=== PATIENT | male | born 1995 | race Caucasian/White ===

== ENCOUNTER 2018-07-05 23:42 | Emergency (ER) | payer BC ==
[~2018-07-05] VITALS: Ht 175.3 cm; Wt 105.4 kg
--- NOTE | 2018-07-05 23:50 | NUR ---
Laureen venegas in ED - 07/05/18 at 2350 by RFRUHLING Pt ambulated to room with EDT.
--- NOTE | 2018-07-05 23:50 | NUR ---
Pt ambulated to room with EDT.
--- NOTE | 2018-07-06 00:07 | NUR ---
Qing JOYCE, at bedside to evaluate pt.
--- NOTE | 2018-07-06 00:29 | NUR ---
Pt back to room from imaging.
[2018-07-06] MEDS ORDERED: DIPH,PERTUSS(ACELL),TET VAC/PF 0.5 ML IM-VACC ONE ×2 (00:33→01:00)
[2018-07-06] MEDS ORDERED: BACITRACIN ZINC OINT 500U/GM, 0.9 GM ONE (00:39)
--- NOTE | 2018-07-06 00:46 | NUR ---
EDT at bedside to irrigate and dress wound.
--- NOTE | 2018-07-06 01:55 | NUR ---
Sling applied and education provided regarding sling.
[2018-07-06 02:10] VITALS: BP 129/74
== END 2018-07-06 02:12 | disposition home or self-care (01) ==
LOC: ED 07-06 00:02
DX: S50.311A Abrasion of right elbow, initial encounter (principal); S50.811A Abrasion of right forearm, initial encounter; W01.0XXA Fall on same level from slipping, tripping and stumbling without subsequent striking against object, initial encounter; Y93.89 Activity, other specified; Y92.89 Other specified places as the place of occurrence of the external cause; Y99.8 Other external cause status
CPT/HCPCS: 90471; 90715; 99283

== ENCOUNTER 2019-12-14 11:05 | Emergency (ER) | payer SELFPAY ==
[~2019-12-14] VITALS: Ht 180.3 cm; Wt 115.9 kg
[2019-12-14] MEDS ORDERED: SODIUM CHLORIDE 0.9% 1,000ML IVBOLUS ONE (11:30)
[2019-12-14] MEDS ORDERED: SODIUM CHLORIDE FLUSH 10ML SYR IVF ONE (11:30)
[2019-12-14 12:05] LABS: BASOPHILS # (AUTO) 0.05 x10^3/uL (0-0.1); BASOPHILS % (AUTO) 1 % (0-1); EOSINOPHILS # (AUTO) 0.14 x10^3/uL (0-0.4); EOSINOPHILS % (AUTO) 2 % (1-7); LYMPHOCYTES # (AUTO) 2.05 x10^3/uL (1-3.4); LYMPHOCYTES % (AUTO) 35 % (22-44); MD NO; MEAN CORPUSCULAR HEMOGLOBIN 30.6 pg (27.5-34.5); MEAN CORPUSCULAR HGB CONC 33.5 g/dL (33.2-36.2); MEAN CORPUSCULAR VOLUME 91.2 fL (81-97); MEAN PLATELET VOLUME 11.2 fL (7.4-10.4); MONOCYTES # (AUTO) 0.25 x10^3/uL (0.2-0.8); MONOCYTES % (AUTO) 4 % (2-9); NEUTROPHILS # (AUTO) 3.46 x10^3/uL (1.8-6.8); NEUTROPHILS % (AUTO) 58 % (42-75); PLATELET COUNT 197 x10^3/uL (130-400); RED BLOOD COUNT 5.07 x10^6/uL (4.38-5.82); RED CELL DISTRIBUTION WIDTH 14.5 % (9.4-14.8)
[2019-12-14 12:13] LABS: ANION GAP 7 mmol/L (5-15); CALCIUM 8.9 mg/dL (8.5-10.1); CHLORIDE 110 mmol/L (98-107); CREATININE 0.95 mg/dL (0.7-1.3)
[2019-12-14 12:31] LABS: MICROSCOPIC AUTO
[2019-12-14 12:59] VITALS: BP 111/55
== END 2019-12-14 13:52 | disposition home or self-care (01) ==
LOC: ED 12:33
DX: K40.90 Unilateral inguinal hernia, without obstruction or gangrene, not specified as recurrent (principal); R11.10 Vomiting, unspecified; E86.0 Dehydration; M54.9 Dorsalgia, unspecified; F17.200 Nicotine dependence, unspecified, uncomplicated
CPT/HCPCS: 36415; 74176; 80048; 81001; 82040; 85025; 87086; 99284